=== PATIENT | female | born 1935 | race Caucasian/White ===

== ENCOUNTER 2016-10-16 16:36 | Inpatient (IN) | payer MEDICARE ==
[2016-10-16] MEDS ORDERED: SODIUM CHLORIDE 0.9% 1,000 ML IV STA (17:08)
--- NOTE | 2016-10-16 17:11 | ED ---
General Adult HPI - General Chief complaint: Syncope Stated complaint: syncope Time Seen by Provider: 10/16/16 16:44 Source: patient, EMS, RN notes reviewed Mode of arrival: EMS Limitations: no limitations - History of Present Illness Initial comments: Patient is a pleasant 81-year-old female presenting to the emergency department following a syncopal episode. Patient was at a restaurant and went to the bathroom. Patient felt like she was going to have a bowel movement and then passed out. Patient believes she was only passed out for a couple of seconds. Patient states she was diaphoretic prior to this episode. Patient states she feels tired at this time otherwise no complaints. No chest pain or dyspnea. No abdominal pain. No headache or confusion. No weakness. - Related Data Home Medications Medication Instructions Recorded Confirmed Acetaminophen [Tylenol Arthritis] 1,300 mg PO DAILY PRN 10/16/16 10/16/16 Amantadine HCl [Symmetrel] 100 mg PO DAILY 10/16/16 10/16/16 Areds2 1 cap PO DAILY 10/16/16 10/16/16 Balsalazide Disodium [Colazal] 2,250 mg PO BID 10/16/16 10/16/16 Carbidopa-Levodopa 25-100 mg 1 tab PO QID 10/16/16 10/16/16 [Sinemet 25-100] Diltiazem HCl [Cardizem] 120 mg PO DAILY 10/16/16 10/16/16 Docusate [Colace] 100 mg PO TID 10/16/16 10/16/16 Furosemide [Lasix] 40 mg PO BID 10/16/16 10/16/16 Lisinopril [Zestril] 10 mg PO DAILY 10/16/16 10/16/16 Loratadine [Claritin] 10 mg PO DAILY PRN 10/16/16 10/16/16 Potassium Chloride [Klor-Con 20] 20 meq PO DAILY 10/16/16 10/16/16 Triamterene-Hctz 75-50Mg [Maxzide 1 tab PO DAILY 10/16/16 10/16/16 75-50] Allergies Allergy/AdvReac Type Severity Reaction Status Date / Time sulfasalazine Allergy Rash/Hives Verified 10/16/16 17:17 [From Azulfidine] codeine AdvReac Nausea Verified 10/16/16 17:17 Review of Systems ROS Statement: Those systems with pertinent positive or pertinent negative responses have been documented in the HPI. ROS Other: All systems not noted in ROS Statement are negative. Constitutional: Denies: fever Eyes: Denies: eye pain ENT: Denies: ear pain Respiratory: Denies: cough, dyspnea Cardiovascular: Denies: chest pain Endocrine: Reports: fatigue Gastrointestinal: Denies: abdominal pain Genitourinary: Denies: dysuria Musculoskeletal: Denies: back pain Skin: Denies: rash Neurological: Denies: headache, weakness, numbness, paresthesias, confusion Past Medical History Past Medical History: Atrial Fibrillation, Chest Pain / Angina, Deep Vein Thrombosis (DVT), Hyperlipidemia, Hypertension, Myocardial Infarction (ME), Osteoarthritis (OA), Pneumonia Additional Past Medical History / Comment(s): Parkinsons with neuro implant and battery implants in bilateral chest, ulcerative cholitis, breast cancer 2 breast with radiation 2000, kidney stones , cellulitis left breast hospitalied 9 days, macular degeneration, heart murmur, essential tremor, sleep apnea History of Any Multi-Drug Resistant Organisms: None Reported Past Surgical History: Breast Surgery, Cholecystectomy, Heart Catheterization With Stent Additional Past Surgical History / Comment(s): bilateral mastectomy 2013. cataracts, lens implants, lithotripsy, cysto and stent placement Past Psychological History: Anxiety, Bipolar Smoking Status: Former smoker Past Alcohol Use History: Occasional Past Drug Use History: None Reported General Exam Limitations: no limitations General appearance: alert, in no apparent distress Head exam: Present: atraumatic Eye exam: Present: normal appearance, PERRL, EOMI. Absent: nystagmus ENT exam: Present: normal oropharynx Neck exam: Present: normal inspection. Absent: tenderness Respiratory exam: Present: normal lung sounds bilaterally Cardiovascular Exam: Present: regular rate, normal rhythm Expanded Peripheral pulses: 2+: Radial (R), Radial (L), Dorsalis Pedis (R), Dorsalis Pedis (L) GI/Abdominal exam: Present: soft. Absent: tenderness Extremities exam: Present: normal inspection. Absent: pedal edema, calf tenderness Neurological exam: Present: alert, oriented X3, CN II-XII intact. Absent: motor sensory deficit Expanded Patient oriented to: Present: person, place, time Speech: Present: fluid speech Cranial nerves: EOM's Intact: Normal Sensory exam: Upper Extremity Light Touch: Normal, Lower Extremity Light Touch: Normal Motor strength exam: RUE: 5, LUE: 5, RLE: 5, LLE: 5 Eye Response: (4) open spontaneously Motor Response: (6) obeys commands Verbal Response: (5) oriented Psychiatric exam: Present: normal affect, normal mood Skin exam: Present: normal color Course Vital Signs 10/16/16 10/16/16 16:39 18:34 Temperature 96.9 F L 97.0 F L Pulse Rate 72 75 Respiratory 18 18 Rate Blood Pressure 121/58 115/42 O2 Sat by Pulse 95 98 Oximetry EKG Findings - EKG Comments: EKG Findings:: No sinus rhythm at 70. GA 200. QRS 98. QT 396. QTc 427. Left axis. Septal Q waves. No acute ST change. Medical Decision Making - Medical Decision Making Patient reevaluated and resting comfortably in bed. Patient and family updated on results and plan. Case was discussed with Dr. Funez, who will admit for hospital call. - Lab Data Result diagrams: 10/16/16 16:58 10/16/16 16:58 Lab Results 10/16/16 10/16/16 10/16/16 Range/Units 16:58 16:58 16:58 WBC 8.0 (3.8-10.6) k/uL RBC 4.92 (3.80-5.40) m/uL Hgb 15.7 (11.4-16.0) gm/dL Hct 48.3 H (34.0-46.0) % MCV 98.1 (80.0-100.0) fL MCH 31.8 (25.0-35.0) pg MCHC 32.5 (31.0-37.0) g/dL RDW 13.7 (11.5-15.5) % Plt Count 145 L (150-450) k/uL Neutrophils % 76 % Lymphocytes % 16 % Monocytes % 5 % Eosinophils % 2 % Basophils % 0 % Neutrophils # 6.1 (1.3-7.7) k/uL Lymphocytes # 1.3 (1.0-4.8) k/uL Monocytes # 0.4 (0-1.0) k/uL Eosinophils # 0.1 (0-0.7) k/uL Basophils # 0.0 (0-0.2) k/uL PT (9.0-12.0) sec INR (<1.1) APTT (22.0-30.0) sec Sodium 139 (137-145) mmol/L Potassium 3.2 L (3.5-5.1) mmol/L Chloride 102 (98-107) mmol/L Carbon Dioxide 25 (22-30) mmol/L Anion Gap 12 mmol/L BUN 39 H (7-17) mg/dL Creatinine 1.00 (0.52-1.04) mg/dL Est GFR (MDRD) Af Amer >60 (>60 ml/min/1.73 sqM) Est GFR (MDRD) Non-Af 53 (>60 ml/min/1.73 sqM) Glucose 124 H (74-99) mg/dL Calcium 9.9 (8.4-10.2) mg/dL Magnesium 2.1 (1.6-2.3) mg/dL Total Bilirubin 0.5 (0.2-1.3) mg/dL AST 21 (14-36) U/L ALT 25 (9-52) U/L Alkaline Phosphatase 91 (38-126) U/L Total Creatine Kinase 87 (30-135) U/L CK-MB (CK-2) 1.0 (0.0-2.4) ng/mL CK-MB (CK-2) Rel Index 1.1 Troponin I <0.012 (0.000-0.034) ng/mL Total Protein 6.4 (6.3-8.2) g/dL Albumin 4.0 (3.5-5.0) g/dL Urine Color Urine Appearance (Clear) Urine pH (5.0-8.0) Ur Specific [place] (1.001-1.035) Urine Protein (Negative) Urine Glucose (UA) (Negative) Urine Ketones (Negative) Urine Blood (Negative) Urine Nitrite (Negative) Urine Bilirubin (Negative) Urine Urobilinogen (<2.0) mg/dL Ur Leukocyte Esterase (Negative) 10/16/16 10/16/16 Range/Units 16:58 18:38 WBC (3.8-10.6) k/uL RBC (3.80-5.40) m/uL Hgb (11.4-16.0) gm/dL Hct (34.0-46.0) % MCV (80.0-100.0) fL MCH (25.0-35.0) pg MCHC (31.0-37.0) g/dL RDW (11.5-15.5) % Plt Count (150-450) k/uL Neutrophils % % Lymphocytes % % Monocytes % % Eosinophils % % Basophils % % Neutrophils # (1.3-7.7) k/uL Lymphocytes # (1.0-4.8) k/uL Monocytes # (0-1.0) k/uL Eosinophils # (0-0.7) k/uL Basophils # (0-0.2) k/uL PT 10.9 (9.0-12.0) sec INR 1.1 (<1.1) APTT 21.0 L (22.0-30.0) sec Sodium (137-145) mmol/L Potassium (3.5-5.1) mmol/L Chloride (98-107) mmol/L Carbon Dioxide (22-30) mmol/L Anion Gap mmol/L BUN (7-17) mg/dL Creatinine (0.52-1.04) mg/dL Est GFR (MDRD) Af Amer (>60 ml/min/1.73 sqM) Est GFR (MDRD) Non-Af (>60 ml/min/1.73 sqM) Glucose (74-99) mg/dL Calcium (8.4-10.2) mg/dL Magnesium (1.6-2.3) mg/dL Total Bilirubin (0.2-1.3) mg/dL AST (14-36) U/L ALT (9-52) U/L Alkaline Phosphatase (38-126) U/L Total Creatine Kinase (30-135) U/L CK-MB (CK-2) (0.0-2.4) ng/mL CK-MB (CK-2) Rel Index Troponin I (0.000-0.034) ng/mL Total Protein (6.3-8.2) g/dL Albumin (3.5-5.0) g/dL Urine Color Yellow Urine Appearance Clear (Clear) Urine pH 5.5 (5.0-8.0) Ur Specific [place] 1.014 (1.001-1.035) Urine Protein Negative (Negative) Urine Glucose (UA) Negative (Negative) Urine Ketones Negative (Negative) Urine Blood Negative (Negative) Urine Nitrite Negative (Negative) Urine Bilirubin Negative (Negative) Urine Urobilinogen <2.0 (<2.0) mg/dL Ur Leukocyte Esterase Negative (Negative) - Radiology Data Radiology results: report reviewed (Computed tomography scan of the brain shows bilateral metal electrodes. Otherwise no acute process.), image reviewed ( Chest x-ray shows no acute process) Disposition Clinical Impression: Syncope Disposition: ADMITTED IP TO THIS HOSP Referrals: Nonstaff,Physician [Primary Care Provider] - 1-2 days Decision Time: 19:21
[2016-10-16 17:25] LABS: Basophils % (A) 0 %; CH 32.2; CHCM 32.9; Eosinophils # (A) 0.1 k/uL (0-0.7); Eosinophils % (A) 2 %; HCT 48.3 % (34.0-46.0); HDW 2.04; HGB 15.7 gm/dL (11.4-16.0); Luc # (Auto) 0.09; Luc % (Auto) 1; Lymphocytes # (A) 1.3 k/uL (1.0-4.8); Lymphocytes % (A) 16 %; MCH 31.8 pg (25.0-35.0); MCHC 32.5 g/dL (31.0-37.0); MCV 98.1 fL (80.0-100.0); Mean Platelet Volume 7.9; Monocytes # (A) 0.4 k/uL (0-1.0); Monocytes % (A) 5 %; Neutrophils # (A) 6.1 k/uL (1.3-7.7); Neutrophils % (A) 76 %; RBC 4.92 m/uL (3.80-5.40); RDW 13.7 % (11.5-15.5); WBC (Perox) 7.68
[2016-10-16 17:29] LABS: ALT 25 U/L (9-52); AST 21 U/L (14-36); Alkaline Phosphatase 91 U/L (38-126); Anion Gap 12 mmol/L; Blood Urea Nitrogen 39 mg/dL (7-17); Calcium 9.9 mg/dL (8.4-10.2); Carbon Dioxide 25 mmol/L (22-30); Chloride 102 mmol/L (98-107); Glucose 124 mg/dL (74-99); Magnesium 2.1 mg/dL (1.6-2.3); Non-African American GFR(MDRD) 53 (>60 ml/min/1.73 sqM); Potassium 3.2 mmol/L (3.5-5.1); Sodium 139 mmol/L (137-145); Total Bilirubin 0.5 mg/dL (0.2-1.3); Total Protein 6.4 g/dL (6.3-8.2)
[2016-10-16 17:36] LABS: INR 1.1 (<1.1); Prothrombin Time 10.9 sec (9.0-12.0)
[2016-10-16 17:41] LABS: Creatine Kinase 87 U/L (30-135)
[2016-10-16 17:54] LABS: Troponin I <0.012 ng/mL (0.000-0.034)
--- NOTE | 2016-10-16 18:32 | CT ---
EXAMINATION TYPE: CT brain wo con DATE OF EXAM: 10/16/2016 COMPARISON: NONE HISTORY: Patient complains of syncopeal episode today. CT DLP: 763.5 mGycm Automated exposure control for dose reduction was used. FINDINGS: There are metal electrodes implanted in left and right thalamus. There is cerebral cortical atrophy. There is no mass effect nor midline shift. There is no sign of intracranial hemorrhage. The calvarium is intact. IMPRESSION: BILATERAL METAL ELECTRODES. NO ACUTE INTRACRANIAL ABNORMALITY. CEREBRAL ATROPHY.
[2016-10-16 18:47] LABS: Appearance,Urine Clear (Clear); Bilirubin,Urine Negative (Negative); Glucose,Urine (UA) Negative (Negative); Ketones,Urine Negative (Negative); Leukocyte Esterase,Urine Negative (Negative); Nitrite,Urine Negative (Negative); PH, Urine 5.5 (5.0-8.0); Protein,Urine Negative (Negative); Specific Gravity,Urine 1.014 (1.001-1.035); UA Billing (MACRO vs. MICRO) CHEM; Urobilinogen,Urine <2.0 mg/dL (<2.0)
--- NOTE | 2016-10-16 18:55 | XR ---
EXAMINATION TYPE: XR chest 2V DATE OF EXAM: 10/16/2016 COMPARISON: NONE HISTORY: Syncope TECHNIQUE: Frontal and lateral views of the chest are obtained. FINDINGS: There is no heart failure nor confluent pneumonic infiltrate. There are bilateral neural s timulators over the upper chest. There are chest leads. There is no pleural effusion. Bony thorax toña ears intact. IMPRESSION: No active cardiopulmonary disease. No heart failure.
[2016-10-16] MEDS ORDERED: NALOXONE 0.4 MG/ML 1 ML VIAL IV PRN (19:21)
[2016-10-16] MEDS ORDERED: LORATADINE 10 MG TAB PO PRN (19:54)
[2016-10-16] MEDS ORDERED: RX INFO: IV CONTRAST WAS GIVEN 1 EACH MISC MISCELLANE PRN ×2 (19:57→20:16)
[2016-10-16] MEDS: DOCUSATE 100 MG CAP PO SCH (21:08)
[2016-10-16] MEDS: FUROSEMIDE 40 MG TAB PO SCH (21:09)
[2016-10-16] MEDS: CARBIDOPA-LEVODOPA 25-100 MG 1 EACH TAB PO SCH (21:11)
[2016-10-16 21:39] LABS: CHCM 32.3; HCT 47.5 % (34.0-46.0); HDW 2.04; MCH 31.5 pg (25.0-35.0); MCHC 31.6 g/dL (31.0-37.0); MCV 99.4 fL (80.0-100.0); Mean Platelet Volume 7.6; RBC 4.78 m/uL (3.80-5.40); RDW 13.7 % (11.5-15.5); WBC 12.4 k/uL (3.8-10.6)
--- NOTE | 2016-10-16 22:45 | CT ---
EXAM: CT Angiography Chest With Intravenous Contrast CLINICAL HISTORY: Reason: elevated D-dimer TECHNIQUE: Axial computed tomographic angiography images of the chest with intravenous contrast using pulmonary embolism protocol. CTDI is 67.70 mGy and DLP is 514.70 mGy-cm. This CT exam was performed using one or more of the following dose reduction techniques: automated exposure control, adjustment of the mA and/or kV according to patient size, and/or use of iterative reconstruction technique. MIP reconstructed images were created and reviewed. COMPARISON: Earlier chest radiographs of the same evening. FINDINGS: Pulmonary arteries: Slightly suboptimal contrast bolus, and mild motion related artifact, allowing for which there is no definite evidence of pulmonary embolism including no central or segmental PE seen. Aorta: No acute findings. No thoracic aortic aneurysm. Lungs: Minimal subpleural reticular changes anteriorly within the right lung, may be on a postradiation basis. Minor dependent changes in both lower lung sandhu, with linear atelectasis/scarring anteriorly at the left base. Pleural space: Unremarkable. No significant effusion. No pneumothorax. Heart: Cardiomegaly with thinning of the left ventricular apex that may be related to prior apical infarct. No significant pericardial effusion. No evidence of RV dysfunction. Bones/joints: Multilevel degenerative change and mild rightward curvature of the mid to lower thoracic spine. No acute fracture. Soft tissues: Previous bilateral mastectomy, with more pronounced volume loss involving the right anterior chest wall where as on the left there is bandlike soft tissue thickening with central hypodensity that may be an old seroma. Lymph nodes: No adenopathy seen. Upper abdomen: Imaging is limited including by motion related artifact. There are several hepatic low density lesions, the largest of which is consistent with a cyst, others of which are indeterminate. Prior cholecystectomy. Tubes, lines and devices: There are again bilateral neurostimulator batteries implanted within the upper anterior chest wall along with superiorly directed leagues. IMPRESSION: 1. No definite evidence of acute process seen chest. 2. Nonacute findings as above, includes scattered hepatic lesions which cannot be characterized with this exam, and presumed postsurgical changes in the left anterior chest wall, for which comparison to prior studies is suggested to guide imaging follow-up.
[2016-10-17 01:47] LABS: CHCM 32.4; HCT 46.6 % (34.0-46.0); HDW 2.03; HGB 14.6 gm/dL (11.4-16.0); MCH 31.2 pg (25.0-35.0); MCHC 31.4 g/dL (31.0-37.0); MCV 99.3 fL (80.0-100.0); Mean Platelet Volume 7.5; RBC 4.69 m/uL (3.80-5.40); RDW 13.8 % (11.5-15.5); WBC 9.9 k/uL (3.8-10.6)
--- NOTE | 2016-10-17 08:46 | CT ---
EXAMINATION TYPE: CT abdomen pelvis wo con DATE OF EXAM: 10/17/2016 COMPARISON: NONE INDICATION: Patient complains of bloody stools, nausea, and dizziness. DLP: 1254.5 mGycm, Automated exposure control for dose reduction was used. CONTRAST: None Study performed without Oral Contrast TECHNIQUE: Axial images were obtained from above the diaphragm to the pubic rami in the axial plane a t 5 mm thick sections. Reconstructed images are reviewed on the computer in the coronal plane. FINDINGS: Limited CT sections are obtained the lung bases. The lung bases are clear. CT ABDOMEN: Liver: There is a 1.0 cm hypodensity within the superior right lobe liver is nonspecific and could be related to a cyst or other etiology. 1.4 similar hypodensities in the periphery of the right mid shannan er. A 2.6 cm hypodensity measuring 1 Hounsfield unit is in the medial right lobe liver. Couple of sub tle hypodensities are along the subcortical medial left lobe liver. There is a 1.1 cm hypodensity wit hin the right anterior lobe liver. Spleen: Normal Pancreas: Normal Adrenal glands: The adrenal glands are normal. Gallbladder: Normal Kidneys: No masses are evident. No hydronephrosis is present. No cysts are present. Some minimal r esidual contrast may be present within the kidneys. There is a punctate calcification measuring 0.4 c m within the inferior pole left kidney. Right renal arteries retrocaval. Aorta: Vascular calcification is within the aorta. Inferior vena cava: Normal. CT PELVIS: Loops of bowel within the abdomen and pelvis are normal. Fecal debris is in the ascending colon. Study is without oral contrast limiting the evaluation. The descending colon and sigmoid colon has a pipe-like appearance. Correlate for laxative overuse. Sclerotic changes of colitis are not clearly id entified on this noncontrast study. This is somewhat limited however. Appendix: Normal as visualized. Urinary bladder: Normal. Contrast is within the urinary bladder. Genitourinary structures: Uterus is unremarkable. Adnexal regions are clear. Osseous structures: No suspicious lytic or sclerotic lesions. Sacroiliac joint degenerative changes a re present. Degenerative disc changes and facet hypertrophy are within the lower lumbar spine. Spinal canal stenosis L4-5 is likely present. Degenerative disc changes are within the lumbar spine. IMPRESSIONS: 1. Multiple hypodensities scattered within the liver most likely on the basis of hepatic cysts. Some of these are too small to classify no other etiologies are not excluded. 2. A mild colitis of the descending colon is not excluded. Correlate for laxative overuse.
[2016-10-17] MEDS: POTASSIUM CHLORIDE ER 20 MEQ TAB.ER PO SCH (09:39)
[2016-10-17] MEDS: LISINOPRIL 10 MG TAB PO SCH (09:39)
[2016-10-17] MEDS: DOCUSATE 100 MG CAP PO SCH ×3 (09:39→19:54)
[2016-10-17] MEDS: FUROSEMIDE 40 MG TAB PO SCH (09:39)
[2016-10-17] MEDS: AMANTADINE HCL 100 MG CAP PO SCH (09:39)
[2016-10-17] MEDS: CARBIDOPA-LEVODOPA 25-100 MG 1 EACH TAB PO SCH ×4 (09:39→21:34)
[2016-10-17] MEDS: DILTIAZEM CD 120 MG CAP.ER.24H PO SCH (09:39)
--- NOTE | 2016-10-17 10:00 | P.CRDCN ---
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 Patient has history of prior DVT, hypertension, hyperlipidemia, Parkinson's, ulcerative colitis, breast cancer with prior radiation, sleep apnea, she also has a neural stimulator in place for essential tremors, patient also states she had myocardial infarction around 25 years ago at which time a heart cath was performed but according to her no blockages were found. Patient presented to the hospital following a syncopal episode. She states that she was in a restaurant, she had gone into the bathroom and sat down, according to her she was not straining to have a bowel movement or urinate, she became extremely diaphoretic next thing she recalls is waking up 2 people helping her. She states she didn't pass out, she was alert and oriented upon wakening. Approximately one and a half years ago, patient did have a similar episode. She states that she had a loop recorder put in place because of that episode, she was told to have had 2 separate episodes of brief SVT lasting approximately 30 seconds. Patient also states that she had noticed some bright red blood with 3 separate a bowel movement starting last evening. She does have a history of ulcerative colitis however has colonoscopies every year, most recent in June of this year which was normal at that time. 2 subsequent bowel movements have been normal this morning. EKG on arrival here showed a normal sinus rhythm with no acute changes. Chest x-ray did not reveal any active cardiopulmonary disease. CAT scan of the brain revealed bilateral metal electrodes no acute abnormality. CTA of the chest negative for pulmonary embolism. Nonacute findings include scattered hepatic lesions which cannot be characterized with this exam. Abdominal and pelvic CT reveals multiple hypodensities scattered within the liver most likely on the basis of hepatic cysts. Mild colitis of the descending colon is not excluded. Blood pressure on arrival 120/50 with a heart rate in the 70s. Orthostatics were obtained, 127 /40 lying 110/60 sitting 120/50 standing. WBC 12.4, hemoglobin 15, platelet count 156. D-dimer greater than 34.07, potassium 3.2, BUN 39, creatinine 1.0. Troponins negative 3. At the time of my examination this morning, patient states she feels extremely weak, denies any dizziness or lightheadedness. Past Medical History Past Medical History: Atrial Fibrillation, Chest Pain / Angina, Deep Vein Thrombosis (DVT), Hyperlipidemia, Hypertension, Myocardial Infarction ([place]), Osteoarthritis ([place]), Pneumonia Additional Past Medical History / Comment(s): Parkinsons with neuro implant and battery implants in bilateral chest, ulcerative cholitis, breast cancer 2 breast with radiation 2000, kidney stones , cellulitis left breast hospitalied 9 days, macular degeneration, heart murmur, essential tremor, sleep apnea-no cpap used. gout long time ago(1 episode only), vertigo. Last Myocardial Infarction Date:: unk History of Any Multi-Drug Resistant Organisms: None Reported Past Surgical History: Breast Surgery, Cholecystectomy, Heart Catheterization With Stent Additional Past Surgical History / Comment(s): bilateral mastectomy 2013. cataracts, lens implants, lithotripsy, cysto and stent placement Date of Last Stent Placement:: unk Smoking Status: Former smoker - Past Family History Mother Family Medical History: Myocardial Infarction ([place]) Additional Family Medical History / Comment(s): just few weeks shy of age 99 Father Family Medical History: Cancer, Myocardial Infarction ([place]), Prostate Disorder Additional Family Medical History / Comment(s): prostate cancer Medications and Allergies Home Medications Medication Instructions Recorded Confirmed Type Acetaminophen [Tylenol Arthritis] 1,300 mg PO DAILY PRN 10/16/16 10/16/16 History Amantadine HCl [Symmetrel] 100 mg PO DAILY 10/16/16 10/16/16 History Areds2 1 cap PO DAILY 10/16/16 10/16/16 History Balsalazide Disodium [Colazal] 2,250 mg PO BID 10/16/16 10/16/16 History Carbidopa-Levodopa 25-100 mg 1 tab PO QID 10/16/16 10/16/16 History [Sinemet 25-100] Diltiazem Cd [Cardizem Cd] 120 mg PO DAILY 10/16/16 10/16/16 History Docusate [Colace] 100 mg PO TID 10/16/16 10/16/16 History Furosemide [Lasix] 40 mg PO BID 10/16/16 10/16/16 History Lisinopril [Zestril] 10 mg PO DAILY 10/16/16 10/16/16 History Loratadine [Claritin] 10 mg PO DAILY PRN 10/16/16 10/16/16 History Potassium Chloride [Klor-Con 20] 20 meq PO DAILY 10/16/16 10/16/16 History Triamterene-Hctz 75-50Mg [Maxzide 1 tab PO DAILY 10/16/16 10/16/16 History 75-50] Allergies Allergy/AdvReac Type Severity Reaction Status Date / Time sulfasalazine Allergy Rash/Hives Verified 10/16/16 17:17 [From Azulfidine] codeine AdvReac Nausea Verified 10/16/16 17:17 Physical Exam Vitals: Vital Signs Temp Pulse Pulse Pulse Pulse Resp BP 10/17/16 04:00 76 18 10/17/16 00:00 98.0 F 73 18 10/16/16 19:40 72 87 10/16/16 18:34 97.0 F L 75 18 115/42 10/16/16 16:39 96.9 F L 72 18 121/58 BP BP BP Pulse Ox 10/17/16 04:00 131/53 93 L 10/17/16 00:00 128/67 93 L 10/16/16 19:40 111/59 121/52 127/43 10/16/16 18:34 98 10/16/16 16:39 95 Intake and Output 10/16/16 10/17/16 10/17/16 22:59 06:59 14:59 Intake Total 400 Balance 400 Intake: IV 400 Sodium Chloride 0.9% 1, 400 000 ml @ 100 mls/hr IV . Q10H STA Rx#:[id number] Other: Voiding Method Toilet # Voids 2 1 # Bowel Movements 2 Weight 113.398 kg 118.7 kg PHYSICAL EXAMINATION: HEENT: Head is atraumatic, normocephalic. Pupils equal, round. Neck is supple. There is no elevated jugular venous pressure. HEART EXAMINATION: Heart S1 and S2 systolic murmur is heard. CHEST EXAMINATION: Lungs are clear to auscultation and precussion. No chest wall tenderness is noted on palpation or with deep breathing. ABDOMEN: Soft, obese, nontender. Bowel sounds are heard. No organomegaly noted. EXTREMITIES: 2+ peripheral pulses with trace evidence of peripheral edema and no calf tenderness noted. NEUROLOGIC patient is awake, alert and oriented -3. Mild essential tremors noted. . Results 10/17/16 01:13 10/16/16 16:58 Cardiac Enzymes 10/16/16 10/16/16 10/16/16 Range/Units 16:58 16:58 21:19 AST 21 (14-36) U/L CK-MB (CK-2) 1.0 (0.0-2.4) ng/mL Troponin I <0.012 <0.012 (0.000-0.034) ng/mL 10/17/16 Range/Units 05:59 AST (14-36) U/L CK-MB (CK-2) (0.0-2.4) ng/mL Troponin I <0.012 (0.000-0.034) ng/mL Coagulation 10/16/16 Range/Units 16:58 PT 10.9 (9.0-12.0) sec APTT 21.0 L (22.0-30.0) sec CBC 10/16/16 10/16/16 10/17/16 Range/Units 16:58 21:19 01:13 WBC 8.0 12.4 H 9.9 (3.8-10.6) k/uL RBC 4.92 4.78 4.69 (3.80-5.40) m/uL Hgb 15.7 15.0 14.6 (11.4-16.0) gm/dL Hct 48.3 H 47.5 H 46.6 H (34.0-46.0) % Plt Count 145 L 156 145 L (150-450) k/uL Comprehensive Metabolic Panel 10/16/16 Range/Units 16:58 Sodium 139 (137-145) mmol/L Potassium 3.2 L (3.5-5.1) mmol/L Chloride 102 (98-107) mmol/L Carbon Dioxide 25 (22-30) mmol/L BUN 39 H (7-17) mg/dL Creatinine 1.00 (0.52-1.04) mg/dL Glucose 124 H (74-99) mg/dL Calcium 9.9 (8.4-10.2) mg/dL AST 21 (14-36) U/L ALT 25 (9-52) U/L Alkaline Phosphatase 91 (38-126) U/L Total Protein 6.4 (6.3-8.2) g/dL Albumin 4.0 (3.5-5.0) g/dL Current Medications Generic Name Dose Route Start Last Admin Trade Name Freq PRN Reason Stop Dose Admin Acetaminophen 1,000 mg 10/16/16 19:54 Tylenol Tab PO DAILY PRN Pain Amantadine HCl 100 mg 10/17/16 09:00 Symmetrel PO DAILY SVETLANA Carbidopa/Levodopa 1 each 10/16/16 22:00 10/16/16 21:11 Sinemet 25-100 PO 1 each QID SVETLANA Administration Diltiazem HCl 120 mg 10/17/16 09:00 Cardizem Cd PO DAILY SVETLANA Docusate Sodium 100 mg 10/16/16 22:00 10/16/16 21:08 Colace PO Not Given TID SVETLANA Furosemide 40 mg 10/16/16 21:00 10/16/16 21:09 Lasix PO Not Given BID@0900,1600 SVETLANA Lisinopril 10 mg 10/17/16 09:00 Zestril PO DAILY SVETLANA Loratadine 10 mg 10/16/16 19:54 Claritin PO DAILY PRN Allergy Symptoms Miscellaneous Information 1 each 10/16/16 19:57 Rx Info: Iv Contrast Was Given MISCELLANE 10/18/16 19:58 DAILY PRN Per Protocol Miscellaneous Information 1 each 10/16/16 20:16 Rx Info: Iv Contrast Was Given MISCELLANE 10/18/16 20:19 DAILY PRN Per Protocol Multivitamins/Minerals 1 each 10/17/16 12:00 Ivite PO 1200 SVETLANA Naloxone HCl 0.2 mg 10/16/16 19:21 Narcan IV Q2M PRN Opioid Reversal Potassium Chloride 20 meq 10/17/16 09:00 K-Dur 20 PO DAILY SVETLANA Intake and Output 10/16/16 10/17/16 10/17/16 22:59 06:59 14:59 Intake Total 400 Balance 400 Intake: IV 400 Sodium Chloride 0.9% 1, 400 000 ml @ 100 mls/hr IV . Q10H STA Rx#:[id number] Other: Voiding Method Toilet # Voids 2 1 # Bowel Movements 2 Weight 113.398 kg 118.7 kg 10/17/16 01:13 10/16/16 16:58 EKG Interpretations (text) EKG shows normal sinus with no acute changes. Assessment and Plan Plan: Assessment and plan #1 syncope, rule out cardiac causes pump. Likely vasovagal in nature. #2 hypertension #3 hypertension #4 history of DVT #5 prior myocardial infarction #6 Parkinson's #7 history of ulcerative colitis #8 history of breast CA with left-sided mastectomy #9 prior history of smoking #10 sleep apnea #11 positive bright red blood in the stool # 12 hypokalemia Plan We will continue to monitor for any tachycardia or bradycardia arrhythmias. We will also attempt to get a tracing of the patient's loop recorder. Check orthostatic blood pressure and heart rate every shift. Obtain echocardiogram with Doppler study. Replace potassium Obtain stool for occult blood. Further recommendations to follow. DNP note has been reviewed, I agree with a documented findings and plan of care. Patient was seen and examined.
[2016-10-17] MEDS: ACETAMINOPHEN TAB 500 MG TAB PO PRN ×2 (10:43→18:12)
--- NOTE | 2016-10-17 12:26 | HP ---
DATE OF ADMISSION: DATE OF SERVICE: 10/16/2016 CHIEF COMPLAINT: An 81-year-old white female ( ). Patient was having a bowel movement in the bathroom, passed out, had syncope. States this happened to her like 4 to 5 years ago for which she had defect in her loop recorder. She is diaphoretic significant to this episode. She just came to the hospital. She was found to have elevated D-dimer. A CT of the chest has been ordered at this time by myself. She denies any chest pain, headache or confusion or weakness. 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 Home medications include: 1. Tylenol Arthritis. 2. Amantadine 100 mg daily. 3. Areds2 one daily. 4. Colazal 2250 mg b.i.d. 5. Sinemet q.i.d. 6. Cardizem 120 daily. 7. Colace 100 mg t.i.d. 8. Lasix 40 mg b.i.d. 9. Zestril 10 mg daily. 10. Claritin 10 mg daily. 11. Klor-Con 20 mEq daily. 12. Maxzide 1 daily. Allergies are to SULFASALAZINE, CODEINE. Fourteen-point review of systems negative except for as mentioned in HPI. PAST MEDICAL HISTORY: Atrial fibrillation, intermittent; history of DVT; chest pain, angina; dyslipidemia, hypertension, myocardial infarction, osteoarthritis, pneumonia, Parkinson's disease with neuro implant bilateral chest, ulcerative colitis, breast cancer, radiation in 2000, kidney stones 2008, cellulitis of the left breast, hospitalized for 9 days a year or two ago, macular degeneration, essential tremor, sleep apnea, SURGICAL HISTORY: Breast surgery, cholecystectomy, heart catheterization with stent, bilateral mastectomy, cataracts, lens implants, lithotripsy, cysto and stent placement. PHYSICAL EXAM: Temperature 97, pulse 72 to 75, respiratory rate 16 to 18, blood pressure is 150 to 121 over 40s to 50s, O2 95% to 98% on room air. ENDOCRINE: His BMI is over 40. HEART: S1, S2. LUNGS: Transmitted upper airway sounds. HEMATOLOGIC: Negative Homans. LUNGS: Show decreased breath sounds x4. GENERAL: She was weak and fatigued. HEART: S1, S2 without any murmurs, rubs, gallops. Cranial nerves are intact. She is alert and oriented x3. PSYCH: Fair mood and affect. The EKG shows sinus rhythm. Sodium 139, potassium 3.2. Platelets 145. First troponin negative. ASSESSMENT: 1. Syncope, rule out cardiac arrhythmia, rule out neurologic findings. 2. Hypokalemia. 3. History of atrial fibrillation. 4. History of breast cancer. 5. History of osteoarthritis. 6. History of deep venous thrombosis. History of Parkinson's. 7. History of hypertension. 8. Dyslipidemia. 9. Ulcerative colitis. PLAN: Please see further orders on the chart. CT will be done to rule out pulmonary embolism.
--- NOTE | 2016-10-17 13:19 | P.PN ---
Progress Note - Text This is an addendum to the dictated cardiology consultation. The patient is visiting from [place] and while at the restaurant, she was in the bathroom and felt sweaty, dizzy and had a syncopal episode that lasted for about 15 seconds. She did not have any associated palpitations or chest discomfort. She is not very active physically and has mild to moderate dyspnea on exertion. She has a history of chronic peripheral edema but no associated history of heart failure. She is followed by her software quality tester in [place] and has a loop recorder placed about a year and a half ago because of an episode of presyncope and was found to have rate episodes of SVT that are asymptomatic according to her. She has underwent cardiac catheterization many years ago that was unremarkable and she was told that she had a heart attack but that was diagnosed from an EKG 25 years ago. She has no history of atrial fibrillation or malignant arrhythmia. Her physical examination shows no evidence of lung congestion or peripheral edema. Her EKG shows sinus mechanism with no acute ST segment changes. The patient presents with syncope, most likely vasovagal in etiology. We will interrogate her loop recorder, decrease the dose of her diuretics and obtain an echocardiogram with Doppler. If there is no significant abnormalities the no further cardiac workup will be needed and she can follow-up with her software quality tester upon discharge. Thank you for this consult we will follow with you.
[2016-10-17] MEDS: VIT A,C & E-LUTEIN-MINERALS 1 EACH TAB PO SCH (14:39)
--- NOTE | 2016-10-17 14:48 | P.CNNES ---
History of Present Illness Consult date: 10/17/16 Reason for Consult: Patient being evaluated for acute syncopal episode. History of Present Illness: This patient is a 81-year-old right-handed white female who is a retired registered nurse and is currently living in [place]. The patient was visiting the area locally yesterday and was at a restaurant and had gone into the bathroom and sat down. The patient was not straining and did not have any difficulty to have a bowel movement or urinate. While sitting on the commode she became extremely diaphoretic and the next thing she recalls is waking up on the floor with 2 people helping her. Patient does remember feeling very lightheaded and diaphoretic before this episode. She has a history of a similar episode of syncope that occurred about a year ago. She was seen by her early years teacher in [place] and had a loop recorder placed. She was told that she had 2 separate episodes of brief SVT lasting approximately 30 seconds in duration. She has been following up with her early years teacher on a regular basis in [place]. Patient did not have any loss of bowel or bladder symptoms during this recent episode. She has no previous history of seizures. EMS was called to the restaurant and she was brought into the emergency room for further evaluation. She was seen in the ER by Dr. Salas who ordered a computed tomography scan of the brain. CAT scan of the brain revealed bilateral metal electrodes with no other acute abnormality seen. Patient has a history of Parkinson's disease and essential tremor. She states that the deep brain stimulators were placed for treatment of her essential tremor by her neurologist in [place]. Apparently this has been working quite well for management of her Parkinson's condition as well as her essential tremors. The patient was checked in the ER for evidence of hypotension. She is also been checked for orthostatic changes. She is feeling generally weak today but denies any slurred speech or focal weakness. She mentions that while in the bathroom she did feel dizzy and sweaty just prior to this episode. She thinks she may have been unresponsive for 5-10 seconds in duration. She did not have any palpitations or chest pain during this episode. Patient did come around very quickly. She did not appear to be postictal. She denies any previous history of seizures. We would recommend a routine EEG to further evaluate for complex partial seizure in this patient. She otherwise seems to be slowly coming back to baseline level of function. The patient did have elevated d- dimer. She was sent for a CTA of the chest which came back negative for pulmonary embolus. Nonacute findings were noted on the computed tomography scan including hepatic lesions felt to represent possible cysts. The patient is now resting comfortably in bed. She has had no further recurrence of diaphoresis. She is going to be seen by cardiology in regards to her history of SVT and loop recorder placement. She may need to have her loop recorder interrogated. We will continue close neurological follow-up of this patient during this admission. Neurology is now been consulted for further evaluation and recommendations. Review of Systems Constitutional: Denies chills, Denies fever Eyes: denies blurred vision, denies pain Ears, nose, mouth and throat: Denies headache, Denies sore throat Cardiovascular: Denies chest pain, Denies shortness of breath Respiratory: Denies cough Gastrointestinal: Denies abdominal pain, Denies diarrhea, Denies nausea, Denies vomiting Genitourinary: Denies dysuria, Denies hematuria Musculoskeletal: Denies myalgias Integumentary: Denies pruritus, Denies rash Neurological: Reports change in mentation, Reports confusion, Reports motor disturbance, Reports syncope, Denies numbness, Denies weakness Psychiatric: Denies anxiety, Denies depression Endocrine: Denies fatigue, Denies weight change Past Medical History Past Medical History: Atrial Fibrillation, Chest Pain / Angina, Deep Vein Thrombosis (DVT), Hyperlipidemia, Hypertension, Myocardial Infarction ([place]), Osteoarthritis (OA), Pneumonia Additional Past Medical History / Comment(s): Parkinsons with neuro implant and battery implants in bilateral chest, ulcerative cholitis, breast cancer 2 breast with radiation 2000, kidney stones , cellulitis left breast hospitalied 9 days, macular degeneration, heart murmur, essential tremor, sleep apnea-no cpap used. gout long time ago(1 episode only), vertigo. Last Myocardial Infarction Date:: unk History of Any Multi-Drug Resistant Organisms: None Reported Past Surgical History: Breast Surgery, Cholecystectomy, Heart Catheterization With Stent Additional Past Surgical History / Comment(s): bilateral mastectomy 2013. cataracts, lens implants, lithotripsy, cysto and stent placement Date of Last Stent Placement:: unk Smoking Status: Former smoker - Past Family History Mother Family Medical History: Myocardial Infarction ([place]) Additional Family Medical History / Comment(s): just few weeks shy of age 99 Father Family Medical History: Cancer, Myocardial Infarction ([place]), Prostate Disorder Additional Family Medical History / Comment(s): prostate cancer Medications and Allergies Home Medications Medication Instructions Recorded Confirmed Type Acetaminophen [Tylenol Arthritis] 1,300 mg PO DAILY PRN 10/16/16 10/16/16 History Amantadine HCl [Symmetrel] 100 mg PO DAILY 10/16/16 10/16/16 History Areds2 1 cap PO DAILY 10/16/16 10/16/16 History Balsalazide Disodium [Colazal] 2,250 mg PO BID 10/16/16 10/16/16 History Carbidopa-Levodopa 25-100 mg 1 tab PO QID 10/16/16 10/16/16 History [Sinemet 25-100] Diltiazem Cd [Cardizem Cd] 120 mg PO DAILY 10/16/16 10/16/16 History Docusate [Colace] 100 mg PO TID 10/16/16 10/16/16 History Furosemide [Lasix] 40 mg PO BID 10/16/16 10/16/16 History Lisinopril [Zestril] 10 mg PO DAILY 10/16/16 10/16/16 History Loratadine [Claritin] 10 mg PO DAILY PRN 10/16/16 10/16/16 History Potassium Chloride [Klor-Con 20] 20 meq PO DAILY 10/16/16 10/16/16 History Triamterene-Hctz 75-50Mg [Maxzide 1 tab PO DAILY 10/16/16 10/16/16 History 75-50] Allergies Allergy/AdvReac Type Severity Reaction Status Date / Time sulfasalazine Allergy Rash/Hives Verified 10/16/16 17:17 [From Azulfidine] codeine AdvReac Nausea Verified 10/16/16 17:17 Physical Examination - Vital Signs Vital Signs: Vital Signs Temp Pulse Pulse Pulse Pulse Resp BP 10/17/16 04:00 76 18 10/17/16 00:00 98.0 F 73 18 10/16/16 19:40 72 87 10/16/16 18:34 97.0 F L 75 18 115/42 10/16/16 16:39 96.9 F L 72 18 121/58 BP BP BP Pulse Ox 10/17/16 04:00 131/53 93 L 10/17/16 00:00 128/67 93 L 10/16/16 19:40 111/59 121/52 127/43 10/16/16 18:34 98 10/16/16 16:39 95 Intake and Output 10/16/16 10/17/16 10/17/16 22:59 06:59 14:59 Intake Total 400 Balance 400 Intake: IV 400 Sodium Chloride 0.9% 1, 400 000 ml @ 100 mls/hr IV . Q10H STA Rx#:[id number] Other: Voiding Method Toilet # Voids 2 1 # Bowel Movements 2 Weight 113.398 kg 118.7 kg - Constitutional General appearance: average body habitus, cooperative - EENT EENT: PERRL, mucous membranes moist - Respiratory Respiratory: lungs clear, normal breath sounds - Cardiovascular Cardiovascular: regular rate, normal S1, normal S2 Extremities: no peripheral edema bilaterally - Gastrointestinal Gastrointestinal: normoactive bowel sounds - Integumentary Integumentary: normal - Neurologic Cranial nerve examination: PERRL, EOMI, VFF, V1/V2/V3 grossly intact, tongue midline, intact gag reflex, intact corneal reflex, normal palatal elevation Speech examination: intact Detailed motor examination: full strength in all major muscle groups Motor examination - right side: 5/5: biceps, triceps, wrist flexion, wrist extension, bloom conveyor operator, hip flexors, knee extensors, dorsiflexion, toe extension (EHL) , plantarflexion Motor examination - left side: 5/5: biceps, triceps, wrist flexion, wrist extension, bloom conveyor operator, hip flexors, knee extensors, dorsiflexion, toe extension (EHL) , plantarflexion Detailed sensory examination: intact Reflex and gait examination: intact Reflexes: 1+: ankle, bicep, knee, tricep - Musculoskeletal Musculoskeletal: no pain - Psychiatric Psychiatric: mood/affect appropriate, cooperative Results - Laboratory Findings CBC and BMP: 10/17/16 01:13 10/16/16 16:58 Abnormal Lab Findings: Abnormal Labs 10/16/16 10/16/16 10/16/16 16:58 16:58 16:58 WBC Hct 48.3 H Plt Count 145 L APTT 21.0 L D-Dimer Potassium 3.2 L BUN 39 H Glucose 124 H 10/16/16 10/16/16 10/17/16 19:00 21:19 01:13 WBC 12.4 H Hct 47.5 H 46.6 H Plt Count 145 L APTT D-Dimer >34.07 H Potassium BUN Glucose Assessment and Plan (1) Vasovagal syncope Status: Acute Code(s): R55 - SYNCOPE AND COLLAPSE (2) Parkinson disease Status: Acute Code(s): G20 - PARKINSON'S DISEASE (3) Essential tremor Status: Acute Code(s): G25.0 - ESSENTIAL TREMOR (4) Cardiac arrhythmia Status: Acute Code(s): I49.9 - CARDIAC ARRHYTHMIA, UNSPECIFIED Plan: This patient is a 81-year-old female who was in a restaurant yesterday evening and apparently had an acute syncopal episode while in the bathroom. She was sitting on the commode and was not straining. She apparently became extremely diaphoretic and passed out. She was subsequently brought into the emergency room yesterday and underwent a computed tomography scan of the brain which failed to reveal any acute stroke or hemorrhage. She does have evidence of bilateral metal electrodes in the deep structures of the brain for treatment of essential tremor and Parkinson's disease. Patient has a history of a loop recorder placement and does follow with her early years teacher and [place]. She has had 2 separate episodes of SVT in the past lasting 30 seconds in duration. Her clinical history at this time is consistent with vasovagal syncope. We will obtain a routine EEG for further evaluation. We have recommended cardiology consultation regarding interrogation of her loop recorder and further recommendations regarding possibility of cardiac arrhythmia. Computed tomography scan of the brain is reviewed and as noted above. We will await further recommendations from cardiology regarding orthostatic blood pressure changes and presyncope workup. We will continue close neurological follow-up this patient during this admission. Her overall prognosis at this time remains guarded. Time with Patient: Greater than 30
--- NOTE | 2016-10-17 15:27 | P.PN ---
Subjective 81-year-old female being seen by the attending this morning. Patient currently is sitting up does not report having any episodes of dizziness or lightheadedness patient is here visiting from [place]. Patient presented with a syncopal episode while eating in a restaurant in the community. Patient became concerned and came into the emergency room to be evaluated. CAT scan of the brain showed no acute abnormalities. CT of the chest was negative for pulmonary emboli. Patient also had a CAT scan of the abdomen pelvis it did show multiple hypodensities scattered within the liver most likely on the basis of hepatic cysts similar to small to classify. Mild colitis in the descending colon is not excluded correlate for laxative overuse Patient states that she has a primary mental health aide that she does see in [place]. Patient reports having a loop recorder placed about a year and half ago because of an episode of presyncopal was found to have episodes of SVT that were asymptomatic according to the patient. Additionally patient stated many years ago she had a heart catheterization that was unremarkable. Patients being followed by cardiology and neurology service recommendations noted appreciated and reviewed Objective - Vital Signs Vital signs: Vital Signs Temp 97.9 F 10/17/16 12:00 Pulse 79 10/17/16 12:00 Resp 18 10/17/16 12:00 BP 106/50 10/17/16 12:00 Pulse Ox 94 L 10/17/16 12:00 Intake & Output 10/16/16 10/17/16 10/17/16 18:59 06:59 18:59 Intake Total 400 980 Balance 400 980 Weight 113.398 kg 118.7 kg Intake: IV 400 800 Sodium Chloride 0.9% 1, 400 800 000 ml @ 100 mls/hr IV . Q10H STA Rx#:[id number] Oral 180 Other: Voiding Method Toilet Toilet # Voids 1 1 # Bowel Movements 2 - Exam Physical exam 81-year-old female sitting up in bed does not appear in acute distress Lungs diminished at bases otherwise adequate air movement heart S1-S2 audible and regular Abdomen soft nontender reports no nausea vomiting Extremities trace pedal edema - Labs CBC & Chem 7: 10/17/16 01:13 10/16/16 16:58 Labs: Abnormal Lab Results - Last 24 Hours (Table) 10/16/16 10/16/16 10/16/16 Range/Units 16:58 16:58 16:58 WBC (3.8-10.6) k/uL Hct 48.3 H (34.0-46.0) % Plt Count 145 L (150-450) k/uL APTT 21.0 L (22.0-30.0) sec D-Dimer (<0.60) mg/L FEU Potassium 3.2 L (3.5-5.1) mmol/L BUN 39 H (7-17) mg/dL Glucose 124 H (74-99) mg/dL 10/16/16 10/16/16 10/17/16 Range/Units 19:00 21:19 01:13 WBC 12.4 H (3.8-10.6) k/uL Hct 47.5 H 46.6 H (34.0-46.0) % Plt Count 145 L (150-450) k/uL APTT (22.0-30.0) sec D-Dimer >34.07 H (<0.60) mg/L FEU Potassium (3.5-5.1) mmol/L BUN (7-17) mg/dL Glucose (74-99) mg/dL Assessment and Plan Plan: Impression Present on admission syncopal episode most likely vasovagal History of SVT has a loop recorder History of breast cancer left-sided mastectomy History of ulcerative colitis History of Parkinson's disease CAT scan of abdomen and pelvis shows mild colitis of the descending colon not excluded correlate for laxative overuse CAT scan of the abdomen pelvis show multiple hypodensities scattered within the liver most likely on the basis of hepatic cysts some are too small to classify Plan Continue medications by cardiology Continue recommendations by neurology Follow-up on echocardiogram Resume home meds as appropriate Consult surgical service for an episode of bright red blood noted in rectal DVT and GI prophylaxis The above dictated assessment and findings were discussed with Dr. Funez. Impression and the plan of care have been dictated as directed. Ivana Plasencia nurse practitioner acting as a scribe for Dr. Funez
--- NOTE | 2016-10-17 18:57 | P.GSCN ---
History of Present Illness Consult date: 10/17/16 Reason for Consult: rectal bleeding History of present illness: full note dictated Past Medical History Past Medical History: Atrial Fibrillation, Chest Pain / Angina, Deep Vein Thrombosis (DVT), Hyperlipidemia, Hypertension, Myocardial Infarction ([place]), Osteoarthritis (OA), Pneumonia Additional Past Medical History / Comment(s): Parkinsons with neuro implant and battery implants in bilateral chest, ulcerative cholitis, breast cancer 2 breast with radiation 2000, kidney stones , cellulitis left breast hospitalied 9 days, macular degeneration, heart murmur, essential tremor, sleep apnea-no cpap used. gout long time ago(1 episode only), vertigo. Last Myocardial Infarction Date:: unk History of Any Multi-Drug Resistant Organisms: None Reported Past Surgical History: Breast Surgery, Cholecystectomy, Heart Catheterization With Stent Additional Past Surgical History / Comment(s): bilateral mastectomy 2013. cataracts, lens implants, lithotripsy, cysto and stent placement Date of Last Stent Placement:: unk Smoking Status: Former smoker - Past Family History Mother Family Medical History: Myocardial Infarction ([place]) Additional Family Medical History / Comment(s): just few weeks shy of age 99 Father Family Medical History: Cancer, Myocardial Infarction ([place]), Prostate Disorder Additional Family Medical History / Comment(s): prostate cancer Medications and Allergies Home Medications Medication Instructions Recorded Confirmed Type Acetaminophen [Tylenol Arthritis] 1,300 mg PO DAILY PRN 10/16/16 10/16/16 History Amantadine HCl [Symmetrel] 100 mg PO DAILY 10/16/16 10/16/16 History Areds2 1 cap PO DAILY 10/16/16 10/16/16 History Balsalazide Disodium [Colazal] 2,250 mg PO BID 10/16/16 10/16/16 History Carbidopa-Levodopa 25-100 mg 1 tab PO QID 10/16/16 10/16/16 History [Sinemet 25-100] Diltiazem Cd [Cardizem Cd] 120 mg PO DAILY 10/16/16 10/16/16 History Docusate [Colace] 100 mg PO TID 10/16/16 10/16/16 History Furosemide [Lasix] 40 mg PO BID 10/16/16 10/16/16 History Lisinopril [Zestril] 10 mg PO DAILY 10/16/16 10/16/16 History Loratadine [Claritin] 10 mg PO DAILY PRN 10/16/16 10/16/16 History Potassium Chloride [Klor-Con 20] 20 meq PO DAILY 10/16/16 10/16/16 History Triamterene-Hctz 75-50Mg [Maxzide 1 tab PO DAILY 10/16/16 10/16/16 History 75-50] Allergies Allergy/AdvReac Type Severity Reaction Status Date / Time sulfasalazine Allergy Rash/Hives Verified 10/16/16 17:17 [From Azulfidine] codeine AdvReac Nausea Verified 10/16/16 17:17 Surgical - Exam Osteopathic Statement: *. No significant issues noted on an osteopathic structural exam other than those noted in the History and Physical/Consult. Vital Signs Temp Pulse Resp BP Pulse Ox 96.9 F L 72 18 121/58 95 10/16/16 16:39 10/16/16 16:39 10/16/16 16:39 10/16/16 16:39 10/16/16 16:39 Results - Labs 10/17/16 01:13 10/16/16 16:58 Abnormal Lab Results - Last 24 Hours (Table) 10/16/16 10/16/16 10/17/16 Range/Units 19:00 21:19 01:13 WBC 12.4 H (3.8-10.6) k/uL Hct 47.5 H 46.6 H (34.0-46.0) % Plt Count 145 L (150-450) k/uL D-Dimer >34.07 H (<0.60) mg/L FEU Assessment and Plan (1) Rectal bleeding Status: Acute (2) Vasovagal syncope Status: Acute Plan: This is likely ischemic colitis due to syncopal episode. Will follow with you. see dictation
[2016-10-17] MEDS ORDERED: ERTAPENEM 1 GM in SODIUM CHLORIDE 0.9% 50 ML IVPB SCH (19:15)
[2016-10-17] MEDS ORDERED: FAMOTIDINE 20 MG TAB PO SCH (21:00)
[2016-10-18] MEDS: ACETAMINOPHEN TAB 500 MG TAB PO PRN (05:53)
[2016-10-18 06:13] LABS: Basophils % (A) 0 %; CH 31.4; CHCM 32.3; Eosinophils # (A) 0.2 k/uL (0-0.7); Eosinophils % (A) 2 %; HCT 42.3 % (34.0-46.0); HGB 13.5 gm/dL (11.4-16.0); Luc % (Auto) 1; Lymphocytes # (A) 1.4 k/uL (1.0-4.8); Lymphocytes % (A) 16 %; MCH 31.2 pg (25.0-35.0); MCHC 31.9 g/dL (31.0-37.0); MCV 97.8 fL (80.0-100.0); Mean Platelet Volume 7.4; Monocytes # (A) 0.4 k/uL (0-1.0); Monocytes % (A) 5 %; Neutrophils # (A) 6.8 k/uL (1.3-7.7); Neutrophils % (A) 77 %; RBC 4.32 m/uL (3.80-5.40); RDW 13.9 % (11.5-15.5); WBC 8.8 k/uL (3.8-10.6); WBC (Perox) 9.07
[2016-10-18 06:29] LABS: Anion Gap 6 mmol/L; Blood Urea Nitrogen 17 mg/dL (7-17); Calcium 8.9 mg/dL (8.4-10.2); Carbon Dioxide 25 mmol/L (22-30); Chloride 108 mmol/L (98-107); Glucose 95 mg/dL (74-99); Non-African American GFR(MDRD) >60 (>60 ml/min/1.73 sqM); Potassium 3.4 mmol/L (3.5-5.1); Sodium 139 mmol/L (137-145)
[2016-10-18] MEDS: DOCUSATE 100 MG CAP PO SCH ×2 (08:25→17:19)
[2016-10-18] MEDS: LISINOPRIL 10 MG TAB PO SCH (08:26)
[2016-10-18] MEDS: POTASSIUM CHLORIDE ER 20 MEQ TAB.ER PO SCH (08:26)
[2016-10-18] MEDS: CARBIDOPA-LEVODOPA 25-100 MG 1 EACH TAB PO SCH ×3 (08:26→17:22)
[2016-10-18] MEDS: DILTIAZEM CD 120 MG CAP.ER.24H PO SCH (08:26)
[2016-10-18] MEDS: AMANTADINE HCL 100 MG CAP PO SCH (08:26)
[2016-10-18] MEDS ORDERED: FUROSEMIDE 40 MG TAB PO SCH (09:00)
--- NOTE | 2016-10-18 09:25 | CONS ---
DATE OF CONSULTATION: 10/17/2016. REASON FOR CONSULTATION: Rectal bleeding. HISTORY: The patient is 81-year-old female who was admitted through the emergency department with a syncopal episode. She went in to the restroom when she felt like she needed to have a bowel movement and while sitting down she passed out. She did not actually have a bowel movement. She came into the emergency department. She was admitted for observation and then afterwards went in and had bloody bowel movements, approximately 3 times yesterday. She was fine through most of the day and then had another bloody bowel movement this afternoon about 5. She has a few cramps in her abdomen but no nausea or vomiting. She does have a history of ulcerative colitis, which has not flared up in many years. She has not been having any diarrhea lately. She had a normal colonoscopy earlier this year with findings only of a submucosal lipoma. She is not on any anticoagulants. PAST MEDICAL HISTORY: Atrial fibrillation, angina, DVT, ulcerative colitis, hypertension, hyperlipidemia, myocardial infarction, arthritis, pneumonia, Parkinson's for which she has a neuro stimulator, breast cancer, nephrolithiasis, macular degeneration, essential tremor, sleep apnea. PAST SURGICAL HISTORY: Breast surgery, cholecystectomy, heart catheterization with stenting, bilateral mastectomy in 2013, cataract with intraocular lens implant, lithotripsy, cystoscopy with stent placement. Medications as outpatient: 1. Tylenol arthritis. 2. Symmetrel. 3. Areds 2. 4. ( ). 5. Sinemet. 6. Cardizem. 7. Colace. 8. Lasix. 9. Zestril. 10. Claritin. 11. Klor-Con. 12. Maxzide. ALLERGIES: SULFASALAZINE, CODEINE. SOCIAL HISTORY: Former smoker. [place] [employer] [place] FAMILY HISTORY: Noncontributory. REVIEW OF SYSTEMS: Unremarkable except as per chief complaint. PHYSICAL EXAM: An 81-year-old female. She has been afebrile. Her pulse is in the 70s to 80s, respirations 18, blood pressure 113/50. She has no hypotension documented this admission. NECK: No adenopathy or thyromegaly. HEART: Regular rate and rhythm with a systolic ejection murmur. LUNGS: Clear to auscultation. No wheezes, rales, rhonchi, or rubs. ABDOMEN: Soft. Positive bowel sounds. Minimal masses or hepatosplenomegaly. No tenderness, guarding or rebound. LABS: Her last hemoglobin is 14.6 with a normal white count, platelet count 145,000. Her PT/INR were not elevated. CT scan of the abdomen and pelvis was done this morning showing some hypodensities in the liver, most likely cysts, and possible mild colitis of the descending colon. ASSESSMENT: 1. Rectal bleeding, likely on the basis of ischemic colitis which could be related to her syncopal episode. 2. History of ulcerative colitis with no recent flare-ups. RECOMMENDATIONS: At this point, I would hydrate. Give her some IV antibiotics due to some mucosal fluff. Serial exams. Further recommendations to follow.
[2016-10-18 09:28] VITALS: RESP 18; TEMP 97.7
--- NOTE | 2016-10-18 09:49 | ECHOF ---
Referral Reason:syncope MEASUREMENTS -------- HEIGHT: 167.6 cm WEIGHT: 118.4 kg BP: 129/53 RVIDd: 3.1 cm (< 3.3) IVSd: 1.0 cm (0.6 - 1.1) LVIDd: 4.1 cm (3.9 - 5.3) LVPWd: 1.1 cm (0.6 - 1.1) IVSs: 1.4 cm LVIDs: 2.5 cm LVPWs: 1.5 cm LA Diam: 2.8 cm (2.7 - 3.8) LAESV Index (A-L): 18.28 ml/m Ao Diam: 3.0 cm (2.0 - 3.7) AV Cusp: 2.2 cm (1.5 - 2.6) MV EXCURSION: 14.881 mm (> 18.000) MV EF SLOPE: 49 mm/s (70 - 150) EPSS: 0.6 cm MV E Maksim: 0.92 m/s MV DecT: 283 ms MV A Maksim: 0.97 m/s MV E/A Ratio: 0.94 RAP: 5.00 mmHg RVSP: 30.70 mmHg FINDINGS -------- This was a technically difficult study with suboptimal views. The left ventricular size is normal. There is borderline concentric left ventricular hypertrophy. Overall left ventricular systolic function is normal with, an EF between 55 - 60 %. The right ventricle is normal in size and function. Normal LA size by volume 22+/-6 ml/m2. The right atrium was not well visualized. 1.5mg of Definity was utilized for enhancement of images Aortic valve is trileaflet and is mildly thickened. Mild mitral annular calcification present. Mild tricuspid regurgitation present. Right ventricular systolic pressure is normal at < 35 mmHg. The pulmonic valve was not well visualized. The aortic root size is normal. The inferior vena cava is mildly dilated. The pericardium is normal. CONCLUSIONS -------- 1. This was a technically difficult study with suboptimal views. 2. Mild mitral annular calcification present. 3. Mild tricuspid regurgitation present. 4. Right ventricular systolic pressure is normal at < 35 mmHg. 5. The pulmonic valve was not well visualized. 6. The aortic root size is normal. 7. The inferior vena cava is mildly dilated. 8. The pericardium is normal. 9. The left ventricular size is normal. 10. There is borderline concentric left ventricular hypertrophy. 11. Overall left ventricular systolic function is normal with, an EF between 55 - 60 %. 12. The right ventricle is normal in size and function. 13. Normal LA size by volume 22+/-6 ml/m2. 14. The right atrium was not well visualized. 15. 1.5mg of Definity was utilized for enhancement of images 16. Aortic valve is trileaflet and is mildly thickened. PHYSICAL THERAPY TEACHER: Carol Gipson RDCS
[2016-10-18 13:47] VITALS: BP 114/52
[2016-10-18] MEDS: VIT A,C & E-LUTEIN-MINERALS 1 EACH TAB PO SCH (13:49)
--- NOTE | 2016-10-18 14:10 | P.PN ---
Subjective This patient is a 81-year-old female who was admitted to Hospital with symptoms of vasovagal syncope and collapse. Patient was at a restaurant collapsed in the bathroom. She was subsequent admitted to the hospital for further evaluation. She underwent a computed tomography scan of the brain which failed to reveal any acute abnormalities. She does have history of deep brain stimulators placement for treatment of Parkinson's disease and essential tremor. Apparently she had this procedure done about 2 years ago. Patient was also evaluated by cardiology as she does have a history of SVT. She has a loop recorder in place and apparently this has been reviewed. There is no evidence of any cardiac arrhythmia at this time. Patient is feeling much better today. She has had no further syncopal episodes. She does have for her primary fashion stylist in the [place] area and will be returning to his care upon discharge. Patient underwent routine EEG this morning and this is to be reviewed. Her clinical history is at this time consistent with vasovagal syncope. She has been checked for orthostatic hypotension and this is been negative. She was evaluated by general surgery for bright red blood per rectum. This was felt to be ischemic colitis secondary to syncopal episode. Overall the patient seems to be doing very well today. She is being considered for possible discharge home later today. We will continue close neurological follow-up for the patient during this admission. Objective - Vital Signs Vital signs: Vital Signs Temp 97.7 F 10/18/16 08:00 Pulse 69 10/18/16 12:00 Resp 18 10/18/16 12:00 BP 114/52 10/18/16 12:00 Pulse Ox 94 L 10/18/16 12:00 Intake & Output 10/17/16 10/18/16 10/18/16 18:59 06:59 18:59 Intake Total 1780 480 Balance 1780 480 Weight 118.3 kg Intake: IV 1600 Sodium Chloride 0.9% 1, 1600 000 ml @ 100 mls/hr IV . Q10H STA Rx#:[id number] Oral 180 480 Other: Voiding Method Toilet Toilet Toilet # Voids 1 1 2 # Bowel Movements 1 1 - Exam Physical examination: PHYSICAL EXAMINATION: Patient is resting comfortably in bed. VITAL SIGNS: Blood pressure is [114/52]. Heart rate is [69]. Respiration is [18] . Temperature is [97.7]. HEENT: Head is atraumatic, neck is supple, there were no carotid bruits. CHEST: Lungs are clear to auscultation and percussion. CARDIAC: S1, S2 normal rate and rhythm. There is no murmur. ABDOMEN: Soft and nontender. Bowel sounds are present. EXTREMITIES: There is no pedal edema. Peripheral pulses are present. Neurological examination: Patient has a nonfocal neurological examination today. - Labs CBC & Chem 7: 10/18/16 06:01 10/18/16 05:59 Labs: Abnormal Lab Results - Last 24 Hours (Table) 10/17/16 10/18/16 10/18/16 Range/Units 22:55 05:59 06:01 Plt Count 132 L (150-450) k/uL Potassium 3.4 L (3.5-5.1) mmol/L Chloride 108 H (98-107) mmol/L Stool Occult Blood Positive H (Negative) Assessment and Plan (1) Vasovagal syncope Status: Acute Code(s): R55 - SYNCOPE AND COLLAPSE (2) Parkinson disease Status: Acute Code(s): G20 - PARKINSON'S DISEASE (3) Essential tremor Status: Acute Code(s): G25.0 - ESSENTIAL TREMOR (4) Cardiac arrhythmia Status: Acute Code(s): I49.9 - CARDIAC ARRHYTHMIA, UNSPECIFIED Plan: This patient is a pleasant 81-year-old female who was admitted with episode of syncope and collapse. It was felt that this was most likely a vasovagal syncope. She has been evaluated by cardiology and has no acute findings. She has a history of SVT and has a loop recorder in place. She follows with her regular fashion stylist in [place] for this condition. Patient is doing much better today. She has had no further presyncope or syncopal episodes since admission. She is more awake and alert today as well. She has underlying history of Parkinson's disease and essential tremor for which she has undergone deep brain stimulator placement 2 years ago. This remains very stable. Patient underwent routine EEG today which is to be reviewed. Her neurological examination today is otherwise nonfocal. We will continue close neurological follow-up with the patient during this admission.
--- NOTE | 2016-10-18 14:22 | P.PN ---
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 Patient has history of prior DVT, hypertension, hyperlipidemia, Parkinson's, ulcerative colitis, breast cancer with prior radiation, sleep apnea, she also has a neural stimulator in place for essential tremors, patient also states she had myocardial infarction around 25 years ago at which time a heart cath was performed but according to her no blockages were found. Patient presented to the hospital following a syncopal episode. She states that she was in a restaurant, she had gone into the bathroom and sat down, according to her she was not straining to have a bowel movement or urinate, she became extremely diaphoretic next thing she recalls is waking up 2 people helping her. She states she didn't pass out, she was alert and oriented upon wakening. Approximately one and a half years ago, patient did have a similar episode. She states that she had a loop recorder put in place because of that episode, she was told to have had 2 separate episodes of brief SVT lasting approximately 30 seconds. Patient also states that she had noticed some bright red blood with 3 separate a bowel movement starting last evening. She does have a history of ulcerative colitis however has colonoscopies every year, most recent in June of this year which was normal at that time. 2 subsequent bowel movements have been normal this morning. EKG on arrival here showed a normal sinus rhythm with no acute changes. Chest x-ray did not reveal any active cardiopulmonary disease. 10/18/2016 Loop recorder was interrogated and did not reveal any significant arrhythmias. Patient was seen and examined this morning, denies any dizziness or lightheadedness. She did have another bout of blood in the stool, being seen by GI service. From cardiology's perspective she may be able to be discharged home to follow-up with her sales representative sales manager in the [place] area post discharge Objective - Vital Signs Vital signs: Vital Signs Temp 97.7 F 10/18/16 08:00 Pulse 69 10/18/16 12:00 Resp 18 10/18/16 12:00 BP 114/52 10/18/16 12:00 Pulse Ox 94 L 10/18/16 12:00 Intake & Output 10/17/16 10/18/16 10/18/16 18:59 06:59 18:59 Intake Total 1780 480 Balance 1780 480 Weight 118.3 kg Intake: IV 1600 Sodium Chloride 0.9% 1, 1600 000 ml @ 100 mls/hr IV . Q10H STA Rx#:[id number] Oral 180 480 Other: Voiding Method Toilet Toilet Toilet # Voids 1 1 2 # Bowel Movements 1 1 - Exam PHYSICAL EXAMINATION: HEENT: Head is atraumatic, normocephalic. Pupils equal, round. Neck is supple. There is no elevated jugular venous pressure. HEART EXAMINATION: Heart S1 and S2 systolic murmur is heard. CHEST EXAMINATION: Lungs are clear to auscultation and precussion. No chest wall tenderness is noted on palpation or with deep breathing. ABDOMEN: Soft, obese, nontender. Bowel sounds are heard. No organomegaly noted. EXTREMITIES: 2+ peripheral pulses with trace evidence of peripheral edema and no calf tenderness noted. NEUROLOGIC patient is awake, alert and oriented -3. Mild essential tremors noted. . - Labs CBC & Chem 7: 10/18/16 06:01 10/18/16 05:59 Labs: Abnormal Lab Results - Last 24 Hours (Table) 10/17/16 10/18/16 10/18/16 Range/Units 22:55 05:59 06:01 Plt Count 132 L (150-450) k/uL Potassium 3.4 L (3.5-5.1) mmol/L Chloride 108 H (98-107) mmol/L Stool Occult Blood Positive H (Negative) Assessment and Plan Plan: Assessment and plan #1 syncope, rule out cardiac causes. Likely vasovagal in nature. #2 hypertension #3 hypertension #4 history of DVT #5 prior myocardial infarction #6 Parkinson's #7 history of ulcerative colitis #8 history of breast CA with left-sided mastectomy #9 prior history of smoking #10 sleep apnea #11 positive bright red blood in the stool # 12 hypokalemia Plan Loop recorder did not reveal any significant arrhythmias. A cardiogram with Doppler study revealed normal left ventricular systolic function. From cardiology's perspective, patient should be able to be discharged home today. She's been advised to make a follow-up appointment with her sales representative sales manager in the [place] area post discharge. DNP note has been reviewed, I agree with a documented findings and plan of care. Patient was seen and examined.
[2016-10-18 16:56] VITALS: PULSE 76
--- NOTE | 2016-10-18 17:15 | PN ---
DATE OF SERVICE: 10/18/2016 Anahi was seen on rounds. She was admitted with a syncopal episode and then developed rectal bleeding. She had a small bloody bowel movement this morning and nothing since. She has had no nausea or vomiting. She is anxious to go home. PHYSICAL EXAM: Vital signs are stable. She is afebrile. Her abdomen is soft and nontender. Hemoglobin has remained fairly stable. Her hemoglobin dropped about 1.5 grams since admission. ASSESSMENT: Gastrointestinal bleeding, likely on the basis of ischemic colitis due to the syncopal episode. RECOMMENDATION: With no signs of ongoing bleeding, I think she is surgically stable for discharge. Follow up with her primary care physician when she goes home. She had a colonoscopy earlier in the year, so I doubt that is necessary that it be repeated unless she has continued bleeding intermittently.
--- NOTE | 2016-10-18 19:59 | EEG ---
DATE OF SERVICE: 10/18/2016 INDICATIONS FOR EXAMINATION: This patient is an 81 -year-old female being evaluated for syncope and collapse. AGE: 81Y EEG FINDINGS: A routine 21 channel awake digital EEG recording was accomplished utilizing the 10-20 international system with bipolar and referential montages. The background activity in the most alert resting state consists of a low to medium amplitude, fairly well developed and well sustained 8 Hz activity over the posterior head region. This posterior rhythm attenuates to eye opening. There is a small amount of low amplitude 18-20 Hz beta activity seen maximally over the anterior head regions. Muscle and movement artifact was observed on a few occasions during the tracing. Hyperventilation failed to add any additional information to the tracing. No further activation was noted. Photic stimulation at flash frequencies of 2-30 Hz produced a good symmetrical occipital driving response. No epileptiform discharges were seen. IMPRESSION: This EEG is within normal limits for the patient's age. The EEG failed to reveal any focal, lateralized or epileptiform abnormalities. Clinical correlation is recommended.
--- NOTE | 2016-10-19 13:42 | DS ---
DATE OF ADMISSION: 10/16/2016 DATE OF DISCHARGE: 10/18/2016 DISCHARGE DIAGNOSES: 1. Syncope. 2. Hypertension. 3. History of deep venous thrombosis. 4. Prior myocardial infarctions. 5. Parkinson's. 6. Ulcerative colitis. 7. Prior breast cancer. 8. Left-sided mastectomy. 9. Nicotine addiction. 10. Sleep apnea. 11. Hypokalemia. HOSPITAL COURSE This is a white female who came in with dizziness, syncope. Neurology cleared her for discharge. Cardiology cleared her for discharge. Loop recorder did not show any significant arrhythmias, so Cardiology cleared her for discharge. Medications include: 1. Symmetrel 100 mg daily. 2. Sinemet 25/100 q.i.d. 3. Cardizem CD 120 daily. 4. Colace 100 mg t.i.d. 5. Pepcid 40 daily. 6. Dyazide 1 daily. 7. Claritin 10 mg daily. 8. Lasix 40 mg b.i.d. CONDITION: Stable. PROGNOSIS: Guarded. Ambulate as tolerated. HOSPITAL COURSE OF EVENTS: This white female was admitted, evaluated by Cardiology and Neurology. The patient was cleared by Neurology and Cardiology for any significant findings that could cause her syncope. Dr. Be felt it was vasovagal syncope not related to her essential tremor, Parkinson disease or cardiac arrhythmia. Please see further workup as an outpatient.
== END 2016-10-18 17:27 | disposition home health service (06) | DRG 312 ==
LOC: EC 16:36 → 6SEL 19:22
PROVIDERS: ADMIT Family Medicine; ATTEND Family Medicine
DX: R55 Syncope and collapse (principal); K55.9 Vascular disorder of intestine, unspecified; I47.1 Supraventricular tachycardia; G20 Parkinson's disease; I48.91 Unspecified atrial fibrillation; E78.5 Hyperlipidemia, unspecified; E87.6 Hypokalemia; G47.30 Sleep apnea, unspecified; H35.30 Unspecified macular degeneration; I10 Essential (primary) hypertension; I25.2 Old myocardial infarction; K76.89 Other specified diseases of liver; M19.90 Unspecified osteoarthritis, unspecified site; R01.1 Cardiac murmur, unspecified; Z79.899 Other long term (current) drug therapy; Z85.3 Personal history of malignant neoplasm of breast; Z87.891 Personal history of nicotine dependence; Z88.5 Allergy status to narcotic agent; Z88.8 Allergy status to other drugs, medicaments and biological substances; Z82.49 Family history of ischemic heart disease and other diseases of the circulatory system
CPT/HCPCS: 36415; 70450; 71020; 71275; 74176; 80048; 80053; 81003; 82272; 82550; 82553; 83735; 84484; 85025; 85027; 85379; 85610; 85730; 93005; 93306; 95816; 96360; 96361; 99285